=== PATIENT | male | born 1990 | race Hispanic/Latino ===

== ENCOUNTER 2019-11-09 03:48 | Emergency (ER) | payer OTHER ==
[~2019-11-09] VITALS: Ht 180.3 cm; Wt 93.9 kg
[~2019-11-09 03:48] MED LIST: NAPROXEN250 MG PO; ROBAXIN-750750 MG PO
--- OUTSIDE RECORDS SUMMARY | 2019-11-09 03:50 | XMS REPORT ---
Author Author [facility] Address Unknown Phone Unavailable Care Team Providers Care [employer] Name Role Phone Belle FINNEGAN Unavailable Unavailable Problems This patient has no known problems. Allergies, Adverse Reactions, Alerts This patient has no known allergies or adverse reactions. Medications This patient has no known medications. Results Test Description Test Time Test Comments Text Results Atomic Results Result Comments CT ABDOMEN WITHOUT-HOPD 2019-10-22 17:13:00 [facility] [address] [address] Patient Name: ZENAIDA MACHUCA MR #: [id number] : 1990 Age/Sex: 29/M Req #: [id number] Adm Physician: Ordered by: ILIR FINNEGAN MD Report #: [id number] [facility] Room/Bed: Procedure: [id number] HOPD/CT ABDOMEN WITHOUT-HOPD Exam Date: 10/22/19 Exam Time: 1633 REPORT STATUS: Signed EXAM: CT Abdomen and Pelvis WITHOUT intravenous co ntrast INDICATION: Right flank pain COMPARISON: None. TECHNIQUE: Abdomen and pelvis were scanned utilizing a multidetector helical scanner from the lung base to the pubic symphysis without administration of IV contrast. Coronal and sagittal reformations were obtained. IV CONTRAST: None ORAL CONTRAST: None COMPLICATIONS: None RADIATION DOSE: Total DLP: 799.9 mGy*cm Dose modulation, iterative reconstruction, and/or weight based adjustment of the mA/kV was utilized to reduce the radiation dose to as low as reasonably achievable. FINDINGS: LOWER THORAX: Normal. HEPATOBILIARY: No focal hepatic lesions. No biliary ductal dilatation. The gallbladder appears unremarkable. SPLEEN: No splenomegaly. PANCREAS: No focal masses or ductal dilatation. ADRENALS: No adrenal nodules. KIDNEYS/URETERS: No hydronephrosis, stones, or solid mass lesions. PELVIC ORGANS/BLADDER: Unremarkable. PERITONEUM / RETROPERITONEUM: No free air or fluid. LYMPH NODES: No lymphadenopathy. VESSELS: Unremarkable. GI TRACT: Mild diverticulosis. No CT evidence of diverticulitis. No abnormal bowel thickening. No bowel obstruction. Normal appendix. BONES AND SOFT TISSUES: No acute osseous injury. Sacralization of L5. Grade 1 retrolisthesis at L4-5 with mild associated degenerative changes. IMPRESSION: No acute findings in the abdomen or pelvis. Specifically, no renal calculi or hydronephrosis. Signed by: Kassandra Lim MD on 10/22/2019 5:17 PM Dictated By: KASSANDRA LIM MD 16 Transcribed By: DEISI on 10/22/191716 COPY TO: ILIR FINNEGAN MD
[2019-11-09] MEDS ORDERED: CEFTRIAXONE SOD 1 GM/NS 50 ML 50 ML IV ONE (04:45)
[2019-11-09] MEDS ORDERED: PHENAZOPYRIDINE HCL 100 MG TAB PO ONE (04:45)
[2019-11-09] MEDS ORDERED: SODIUM CHLORIDE 0.9% 1000ML 1,000 ML IV SCH (04:45)
[2019-11-09] MEDS ORDERED: SODIUM CHLORIDE 0.9% 1000ML 1,000 ML ONE (05:13)
[2019-11-09] MEDS ORDERED: CEFTRIAXONE SOD 1 GM VIAL ONE (05:13)
[2019-11-09] MEDS ORDERED: CEFDINIR300 MG PO (06:20)
[2019-11-09] MEDS ORDERED: PHENAZOPYRIDIN100 MG PO (06:24)
[2019-11-09 06:42] VITALS: BP 121/77
== END 2019-11-09 06:44 | disposition home or self-care (01) ==
LOC: FSED 03:48
DX: N30.01 Acute cystitis with hematuria (principal)
CPT/HCPCS: 87086; 87186; 99283; J0696; J7030